=== PATIENT | male | born 1950 | race Caucasian/White ===

== ENCOUNTER 2016-10-02 06:48 | Emergency (ER) | payer MEDICARE, BC, MEDICAID ==
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
[2016-10-02 07:44] LABS: INR - (THERAPEUTIC) 1.08 (0.92-1.07); PROTIME 11.4 SECONDS (9.8-11.4); PTT 34 SECONDS (25-32)
[2016-10-02 08:02] LABS: ALBUMIN 2.7 gm/dL (3.5-5.0); ALK PHOS 78 IU/L (33-138); ALT 15 IU/L (12-78); ANION GAP 10.1 (10.0-19.0); AST 15 IU/L (10-40); BLOOD UREA NITROGEN 11 mg/dL (6-24); CHLORIDE 102 mMol/L (96-110); CO2 28 mMol/L (22-32); CPK 38 IU/L (35-332); CREATININE 0.4 mg/dL (0.6-1.3); ESTIMATED GFR (MDRD EQUATION) > 60; MAGNESIUM 1.8 mg/dL (1.8-2.6); POTASSIUM 4.1 mMol/L (3.7-5.1); SODIUM 136 mMol/L (135-145); TOTAL PROTEIN 7.1 g/dL (6.0-8.4)
[2016-10-02 08:07] LABS: TOTAL BILIRUBIN 0.1 mg/dL (0.0-1.5)
[2016-10-02 08:46] LABS: BASOPHIL % 0.3 %; EOSINOPHIL # 0.1 K/uL (0.0-0.5); EOSINOPHIL % 1.6 %; IMMATURE GRANULOCYTE % 0.8 %; LYMPHOCYTE % 25.8 %; MONOCYTE # 0.7 K/uL (0.0-1.0); MONOCYTE % 17.6 %; MPV 10.1 fl (9.4-12.4); NEUTROPHIL # (ANC) 2.1 K/uL (1.4-9.0); NEUTROPHIL % 53.9 %; NRBC % 0 /100WBC (0-0.00); WBC 3.9 K/uL (4.0-11.0)
[2016-10-02 08:51] LABS: HEMATOCRIT 47.2 % (37.0-53.0); MCH 28.3 pg (27.0-34.0); MCHC 33.9 gm/dL (32.0-36.5); MCV 83.5 fl (83.0-98.0); RBC 5.65 M/uL (3.50-5.50)
[2016-10-02 08:52] LABS: PLATELET COUNT 145 K/uL (150-450); RDW-CV 12.9 % (11.9-14.6)
== END 2016-10-02 12:38 ==
LOC: GMED 06:48
PROVIDERS: Emergency Medicine
DX: G40.909 Epilepsy, unspecified, not intractable, without status epilepticus (principal); F09 Unspecified mental disorder due to known physiological condition; K21.9 Gastro-esophageal reflux disease without esophagitis; I48.0 Paroxysmal atrial fibrillation; E03.9 Hypothyroidism, unspecified; F32.9 Major depressive disorder, single episode, unspecified; Z79.899 Other long term (current) drug therapy; Z88.0 Allergy status to penicillin; Z88.8 Allergy status to other drugs, medicaments and biological substances; Z88.1 Allergy status to other antibiotic agents
CPT/HCPCS: J1165; J2405; J7030

== ENCOUNTER → 2016-10-02 | Outpatient (CLI) | payer MEDICARE, BC, MEDICAID | END | disposition disaster alternative care site (69) | LOC: GAMB 06:25 | DX: R40.20 Unspecified coma (principal); F79 Unspecified intellectual disabilities; Z88.0 Allergy status to penicillin; Z88.8 Allergy status to other drugs, medicaments and biological substances; Z88.6 Allergy status to analgesic agent ==